=== PATIENT | female | born 1960 | race Caucasian/White ===

== ENCOUNTER → 2018-06-16 | Outpatient (CLI) | payer OTHER | END | disposition home or self-care (01) | LOC: US 02:04 | DX: R10.11 Right upper quadrant pain (principal) ==

== ENCOUNTER → 2020-01-05 | Outpatient (CLI) | payer OTHER | END | disposition home or self-care (01) | LOC: CT 09:00 | DX: R19.31 Right upper quadrant abdominal rigidity (principal); R53.83 Other fatigue ==

== ENCOUNTER → 2020-04-25 | Outpatient (CLI) | payer OTHER | END | disposition home or self-care (01) | LOC: CARD 08:28 | DX: I34.0 Nonrheumatic mitral (valve) insufficiency (principal); I95.1 Orthostatic hypotension ==

== ENCOUNTER → 2020-12-20 | Outpatient (CLI) | payer OTHER | END | disposition home or self-care (01) | LOC: COVID19 16:02 | PROVIDERS: ATTEND Family Medicine | DX: Z20.822 Contact with and (suspected) exposure to COVID-19 (principal) ==

== ENCOUNTER 2021-09-23 11:30 | Observation (INO) | payer OTHER ==
[~2021-09-23] VITALS: Ht 167.6 cm
[2021-09-23 11:33] VITALS: BP 116/71
[2021-09-23 12:05] LABS: BASO % 0.5 % (0.0-1.0); EOS # 0.2 10*3/uL (0.0-0.4); EOS % 2.4 % (1.0-4.0); HEMATOCRIT 35.5 % (37.0-47.0); LYMPH # 1.4 10*3/uL (1.3-4.4); LYMPH % 21.6 % (27.0-41.0); MEAN CORPUSCULAR HGB 21.3 pg (27.0-31.0); MEAN CORPUSCULAR HGB CONC 31.3 g/dl (33.0-37.0); MONO # 0.4 10*3/uL (0.1-1.0); MONO % 6.4 % (3.0-9.0); NEUT # 4.5 10*3/uL (2.3-7.9); NEUT % 68.8 % (47.0-73.0); PLATELET COUNT AUTOMATED 172 10*3/uL (130-400); RED BLOOD COUNT 5.22 10*6/uL (4.10-5.10); RED CELL DISTRI WIDTH 15.3 % (0-14.5); WHITE BLOOD COUNT 6.6 10*3/uL (4.8-10.8)
[2021-09-23 12:17] LABS: ACT PARTIAL THROMBO TIME 25.9 SECONDS (20.0-32.1)
[2021-09-23 12:20] LABS: ALBUMIN 3.9 gm/dl (3.1-4.5); ALKALINE PHOSPHATASE 48 U/L (45-117); BUN 18 mg/dl (7-24); CHLORIDE 107 mmol/L (98-107); CREATININE 1.08 mg/dL (0.55-1.02); POTASSIUM 4.2 mmol/L (3.5-5.1); SGOT/AST 32 IU/L (3-35); SGPT/ALT 32 U/L (12-78); SODIUM 140 mmol/L (136-145); TOTAL PROTEIN 7.3 gm/dL (6.4-8.2)
[2021-09-23 12:22] LABS: TROPONIN I < 0.015 ng/ml (<0.045)
[2021-09-23 12:52] VITALS: BP 115/57
[2021-09-23] MEDS ORDERED: PRAVASTATIN SOD40 MG PO (16:28)
[2021-09-23] MEDS ORDERED: PRAMIPEXOLE DI0.5 MG PO (16:28)
[2021-09-23] MEDS ORDERED: TOPROL XL25 MG PO (16:29)
[2021-09-23] MEDS ORDERED: ASPIRIN CHEWABL81 MG PO (16:29)
[2021-09-23] MEDS ORDERED: OYSCO 500-VIT1 EACH PO (16:30)
[2021-09-23] MEDS ORDERED: TRIAMTERENE-HC1 EACH PO (16:30)
[2021-09-23 19:35] VITALS: BP 99/54
[2021-09-24 00:30] VITALS: BP 98/59
[2021-09-24 03:30] VITALS: BP 102/62
[2021-09-24 06:46] VITALS: BP 119/69
[2021-09-24 12:00] VITALS: BP 122/68
== END 2021-09-24 17:06 | disposition home or self-care (01) ==
LOC: ED 11:30 → EDHOLD 14:41
PROVIDERS: Emergency Medicine; ADMIT Internal Medicine; ATTEND Internal Medicine
DX: R07.89 Other chest pain (principal); R06.02 Shortness of breath; Z20.822 Contact with and (suspected) exposure to COVID-19; I10 Essential (primary) hypertension; E78.5 Hyperlipidemia, unspecified; Z79.899 Other long term (current) drug therapy; Z79.01 Long term (current) use of anticoagulants